=== PATIENT | male | born 1985 | race Two or more races ===

== ENCOUNTER 2021-04-21 18:21 | Emergency (ER) | payer SELFPAY ==
[~2021-04-21] VITALS: Ht 170.2 cm; Wt 70.3 kg
[2021-04-21 18:21] VITALS: BP 145/77
[2021-04-21] MEDS ORDERED: KETOROLAC TROMETHAMINE INJ 30 MG/ML VIAL IM ONE (19:30)
[2021-04-21] MEDS ORDERED: KETOROLAC TROMETHAMINE INJ 30 MG/ML VIAL ONE (19:43)
[2021-04-21] MEDS ORDERED: HYDR-4303 PO (19:47)
[2021-04-21] MEDS ORDERED: IBUP-1957 PO (19:47)
--- NOTE | 2021-04-21 19:59 | NUR ---
Patient discharged to [facility] in stable condition. Written and verbal after care instructions given pt & [employer] officers. Patient & [employer] officers verbalizes understanding of instruction.
== END 2021-04-21 20:01 ==
LOC: ER 18:24
DX: S92.002A Unspecified fracture of left calcaneus, initial encounter for closed fracture (principal); F20.9 Schizophrenia, unspecified; Y00.XXXA Assault by blunt object, initial encounter; Y93.89 Activity, other specified; Y92.89 Other specified places as the place of occurrence of the external cause; Y99.8 Other external cause status
CPT/HCPCS: 29515; 73610; 96372; 99283; J1885